=== PATIENT | male | born 1955 | race Caucasian/White ===

== ENCOUNTER → 2021-04-24 | Outpatient (CLI) | payer MEDICARE, OTHER ==
[~2021-04-24] MED LIST: ASPI81TA45 PO; CHRM1TAB PO; FLUT1AER INH; MONT10TA6 PO; TIOT18CA INH
== END | disposition home or self-care (01) ==
LOC: STAR 09:13
PROVIDERS: ATTEND Surgery
DX: Z01.812 Encounter for preprocedural laboratory examination (principal); Z20.822 Contact with and (suspected) exposure to COVID-19; K43.2 Incisional hernia without obstruction or gangrene
CPT/HCPCS: 93005; U0003; U0005

== ENCOUNTER 2021-04-30 09:03 | Inpatient (IN) | payer MEDICARE, OTHER ==
[~2021-04-30] VITALS: Ht 200.7 cm; Wt 140.7 kg
[2021-04-30 09:44] VITALS: BP 131/75
[2021-04-30] MEDS ORDERED: CHLORHEXIDINE 15 ML UDC ONE (09:45)
[2021-04-30] MEDS ORDERED: LACTATED RINGERS 1,000 ML IV SCH ×3 (10:00→17:00)
[2021-04-30] MEDS ORDERED: CHLORHEXIDINE 15 ML UDC PO ONE (10:00)
[2021-04-30] MEDS ORDERED: BUPIVACAINE/PF 0.5% ONE (10:51)
[2021-04-30] MEDS ORDERED: DIAZEPAM 5 MG/ML, 2ML IVPush PRN (11:00)
[2021-04-30] MEDS ORDERED: ACETAMINOPHEN 325 MG TABLET PO PRN (11:00)
[2021-04-30] MEDS ORDERED: LABETALOL 5MG/ML, 20ML IV PRN (11:00)
[2021-04-30] MEDS ORDERED: ALBUTEROL/IPRATROPIUM 2.5MG/0.5MG, 3 ML NPPB PRN (11:00)
[2021-04-30] MEDS ORDERED: ONDANSETRON 2MG/ML, 2ML IVPush PRN (11:00)
[2021-04-30] MEDS ORDERED: PROMETHAZINE 25 MG/ML, 1ML IVPush PRN (11:00)
[2021-04-30] MEDS ORDERED: hydrALAzine 20 MG/ML, 1ML IV PRN (11:00)
[2021-04-30] MEDS ORDERED: MEPERIDINE/PF 25MG/0.5ML IVPush PRN (11:00)
[2021-04-30] MEDS ORDERED: FENTANYL PF 100 MCG/2ML IV PRN (11:00)
[2021-04-30] MEDS ORDERED: OXYcodone 5 MG/5 ML ORAL.SOL UDC PO PRN (11:00)
[2021-04-30] MEDS ORDERED: MIDAZOLAM 1 MG/ML, 2ML ONE (11:25)
[2021-04-30] MEDS ORDERED: FENTANYL PF 250 MCG/5ML ONE (11:25)
[2021-04-30] MEDS ORDERED: SUGAMMADEX 200 MG/2 ML IVPush ONE (11:39)
[2021-04-30] MEDS ORDERED: PROPOFOL 10 MG/ML, 20ML ONE (11:57)
[2021-04-30] MEDS ORDERED: ROCURONIUM 10MG/ML,5ML ONE (11:57)
[2021-04-30] MEDS ORDERED: CEFAZOLIN 1,000 MG ONE ×2 (11:58)
[2021-04-30] MEDS ORDERED: ONDANSETRON 2MG/ML, 2ML ONE (11:58)
[2021-04-30] MEDS ORDERED: LIDOCAINE-MPF 2% ,5ML ONE (11:58)
[2021-04-30] MEDS ORDERED: OXYcodone 5 MG/5 ML ORAL.SOL UDC ONE (14:34)
[2021-04-30] MEDS ORDERED: HYDROmorphone 1 MG/ML, 1ML INJ ONE (14:34)
[2021-04-30] MEDS ORDERED: FENTANYL PF 100 MCG/2ML ONE (14:34)
[2021-04-30] MEDS: HYDROmorphone 1 MG/ML, 1ML INJ IVPush PRN ×2 (14:50→14:57)
[2021-04-30] MEDS ORDERED: ONDANSETRON 2MG/ML, 2ML IV PRN (17:00)
[2021-04-30] MEDS ORDERED: morphine SULFATE 10 MG/ML, 1ML IVPush PRN (17:00)
[2021-04-30] MEDS: KETOROLAC 30 MG/1 ML IV SCH (17:59)
[2021-04-30] MEDS: OXYcodone/APAP 5/325MG TABLET PO PRN (19:53)
[2021-04-30] MEDS ORDERED: ALBUTEROL/IPRATROPIUM 2.5MG/0.5MG, 3 ML NPPB SCH (20:00)
[2021-04-30 20:04] VITALS: BP 142/73
[2021-04-30] MEDS ORDERED: BUDESONIDE 0.5 MG/2 ML INHA NPPB SCH (21:00)
[2021-04-30 23:55] VITALS: BP 132/72
[2021-05-01] MEDS: OXYcodone/APAP 5/325MG TABLET PO PRN ×3 (01:01→10:20)
[2021-05-01] MEDS: KETOROLAC 30 MG/1 ML IV SCH ×2 (01:01→06:03)
[2021-05-01 03:44] VITALS: BP 126/69
[2021-05-01 05:56] LABS: BASOPHILS % (AUTO) 1 % (0-1); EOSINOPHILS % (AUTO) 3 % (1-7); LYMPHOCYTES % (AUTO) 16 % (22-44); MEAN CORPUSCULAR HEMOGLOBIN 32.5 pg (27.5-34.5); MEAN CORPUSCULAR HGB CONC 34.5 g/dL (33.2-36.2); MONOCYTES % (AUTO) 9 % (2-9); NEUTROPHILS % (AUTO) 72 % (42-75); PLATELET COUNT 157 x10^3/uL (130-400); RED BLOOD COUNT 4.35 x10^6/uL (4.38-5.82); RED CELL DISTRIBUTION WIDTH 13.7 % (9.4-14.8)
[2021-05-01 06:10] LABS: CHLORIDE 109 mmol/L (98-107)
[2021-05-01 06:15] LABS: ANION GAP 4 mmol/L (5-15); CALCIUM 8.3 mg/dL (8.5-10.1); CREATININE 0.83 mg/dL (0.7-1.3)
[2021-05-01 07:59] VITALS: BP 137/78
[2021-05-01] MEDS ORDERED: OXYC1TAB14 PO (10:00)
[2021-05-01 11:03] VITALS: BP 126/82
[2021-05-09] MEDS ORDERED: POLY17PO5 PO (09:17)
[2021-05-09] MEDS ORDERED: BISA10SU4 PR (09:17)
== END 2021-05-01 11:28 | disposition home or self-care (01) | DRG 337 ==
LOC: OUT 09:03 → 4NE 15:41 → OUT 15:45 → 4NE 15:45 → DCLOUNGE 05-01 11:07
PROVIDERS: ADMIT Surgery; ATTEND Surgery
PROC: 0DN84ZZ Release Small Intestine, Percutaneous Endoscopic Approach (ICD-10-PCS; 2021-04-30)
PROC: 0DNW4ZZ Release Peritoneum, Percutaneous Endoscopic Approach (ICD-10-PCS; 2021-04-30)
PROC: 8E0W4CZ Robotic Assisted Procedure of Trunk Region, Percutaneous Endoscopic Approach (ICD-10-PCS; 2021-04-30)
PROC: 0WUF4JZ Supplement Abdominal Wall with Synthetic Substitute, Percutaneous Endoscopic Approach (ICD-10-PCS; principal; 2021-04-30 11:00)
DX: K43.2 Incisional hernia without obstruction or gangrene (principal); K66.0 Peritoneal adhesions (postprocedural) (postinfection); Z85.46 Personal history of malignant neoplasm of prostate; Z85.51 Personal history of malignant neoplasm of bladder
CPT/HCPCS: 36415; 80048; 85025; 94640; G0378; J0690; J1170; J1885; J2250; J2405; J2704; J3010; J7626; C1781; J7120